=== PATIENT | male | born 1970 | race Caucasian/White ===

== ENCOUNTER → 2017-07-15 | Outpatient (CLI) | payer BC ==
[2017-07-15] MEDS: IOHEXOL 240 MG/ML 50ML VIAL. PO (09:01)
[2017-07-15] MEDS: IOHEXOL 300 MG/ML 100ML VIAL. IV (09:01)
== END | disposition home or self-care (01) ==
LOC: KCIC CT 07:58
DX: N28.1 Cyst of kidney, acquired (principal); K42.9 Umbilical hernia without obstruction or gangrene; R10.84 Generalized abdominal pain
CPT/HCPCS: 74177; Q9966; Q9967

== ENCOUNTER → 2020-03-02 | Outpatient (CLI) | payer BC ==
[~2020-03-02] MED LIST: IOHEXOL 240 MG/ML 50ML VIAL. PO ONE; IOHEXOL 300 MG/ML 100ML VIAL. IV ONE
--- NOTE | 2020-03-02 16:13 | RAD ---
CT scan of the abdomen and pelvis with contrast 03/02/2020 CLINICAL HISTORY: Scrotal pain for 3 months. TECHNIQUE: After the oral and intravenous administration of contrast, contiguous, 5 mm axial sections were obtained through the abdomen and pelvis. 75 cc of Omnipaque 300 were administered intravenously during this examination. One or more of the following individualized dose reduction techniques were utilized for this study: 1. Automated exposure control. 2. Adjustment of the mA and/or kV according to patient size. 3. Use of iterative reconstruction technique. FINDINGS: Comparison study is dated 07/15/2018. Images through the lung bases are within normal limits. The liver, spleen, pancreas, adrenal glands and right kidney are within normal limits. A 2.3 cm rounded low-attenuation lesion is seen involving the midpole of the left kidney. This likely represents a cyst. No further imaging evaluation is recommended. Mild scattered atherosclerotic calcification of the abdominal aorta and its branches is noted. No free fluid or free air is seen within the abdomen. There is no evidence of bowel obstruction. The appendix is well-visualized and is within normal limits. Images through the pelvis demonstrate the urinary bladder distended with urine. No free fluid is seen. No distal ureteral calculus is noted. Minimal S-shaped curvature of the thoracolumbar spine is seen. IMPRESSION: No acute abnormality is seen. Electronically signed by: Oli Silva MD (03/02/2020 4:10 PM) [id number]
--- NOTE | 2020-03-02 16:43 | RAD ---
Scrotal ultrasound 03/02/2020 CLINICAL HISTORY: Scrotal pain. TECHNIQUE: Using a combination of real-time ultrasound imaging and color-flow and pulse Doppler imaging techniques, duplex evaluation of the scrotal sac and its contents was performed. Multiple images were obtained. FINDINGS: Both testicles are within normal limits in size and echogenicity. The right testicle measures 4.9 x 2.9 x 1.8 cm in longitudinal, transverse, and AP dimensions. The left testicle measures 4.9 x 3.2 x 1.9 cm in size. No focal abnormality of either testicle is seen. Normal color-flow and pulse Doppler imaging to both testicles is noted. Oval-shaped anechoic structures are seen adjacent to the periphery of both testicles, superiorly, consistent with tunica albuginea cysts. The right cyst measures 3 mm in size. The left cyst measures 7 mm in size. Both epididymal heads are within normal limits in size and echogenicity. There is a very small left hydrocele. No varicocele is seen. IMPRESSION: 1. Very small left hydrocele. 2. Small tunica albuginea cysts, left greater than right. 3. Otherwise negative study. Electronically signed by: Oli Silva MD (03/02/2020 4:40 PM) [id number]
== END ==
LOC: CT 13:30
PROVIDERS: ATTEND Family Medicine
DX: N50.819 Testicular pain, unspecified (principal); N43.2 Other hydrocele; I70.0 Atherosclerosis of aorta; N32.89 Other specified disorders of bladder; M43.8X5 Other specified deforming dorsopathies, thoracolumbar region
CPT/HCPCS: 74177; 76870; Q9966; Q9967

== ENCOUNTER → 2021-01-01 | Outpatient (CLI) | payer BC ==
--- NOTE | 2021-01-02 10:36 | CARD ---
MR#: [id number] Date of Study: 01/01/2021 Ordering Physician: TREY FREDERICK, Referring Physician: Daniel BLAKE: Missy Cardoso MAIA APPROVED REPORT INDICATION Chest pressure Reason : Patient complained of shortness of breath PROCEDURE The patient underwent an Exercise Stress Test using the Leo Protocol. Blood pressure, heart rate, a nd EKG were monitored. An Echocardiogram was performed by refinish technician in four stages in quad fashion. At peak stress four se lected images were obtained and placed side by side with resting images for comparison. STRESS ECHO FINDINGS The resting Echocardiogram showed normal left ventricular systolic contractility with an estimated Ej ection Fraction of about 60 %. The Resting Echocardiogram showed normal augmentation of myocardial wall segments using a 16 segment model. The Stress Echocardiogram showed normal augmentation of myocardial wall segments using a 16 segment m girish. The Stress Echocardiogram left ventricular systolic contractility has an estimated Ejection Fraction of about 75%. Test Type: Exercise Stress Nurse/Tech: Olive Hamm R.N. Test Indications: chest pain Cardiac History and Allergies: No known cardiac , Family history Medications: see ehr Medical History: see ehr Resting ECG: SB w/BBB Resting Heart Rate: 50 bpm Resting Blood Pressure: 118/66mmHg Pretest Chest Pain: No chest pain Nurse/Tech Notes S1S2, lungs CTA Stress Symptoms fatigue. did c/o a "air bubble " sensation, like he needed to burp -during last 3 minutes of activity . this resolved shortly after laying down POST EXERCISE Reason for Termination: Reached target heart rate Target HR: Yes Max HR: 158 bpm 92% of Maximum Predicted HR: 170 bpm Exercise duration: 10:21 min:sec, 4 Stage Exercise capacity: 12.8METs Max Blood Pressure: 174/98mmHg Blood Pressure response to exercise: Normal blood pressure response during stress. Heart Rate response to exercise: wnl Chest Pain: Yes. see above note Arrhythmia: No. had a few pvc's ST Change: Yes. non diagnostic INTERPRETATION Stress EKG Conclusion: Baseline EKG showed sinus rhythm. Non-diagnostic changes at peak stress. Few PVCs without any significant arrhythmias. <Conclusion> Treadmill exercise stress echocardiogram did not show any evidence of ischemia or infarct. Normal left ventricle systolic function with ejection fraction estimated at 60%. Patient had good activity tolerance. Low risk for cardiac events. Signed by : Trey Frederick, Electronically Approved : 01/02/2021 10:35:29
== END ==
LOC: ECHO 12:10
PROVIDERS: ATTEND Internal Medicine Cardiovascular Disease
DX: R07.9 Chest pain, unspecified (principal)
CPT/HCPCS: 93017; 93350

== ENCOUNTER → 2021-07-04 | Outpatient (CLI) | payer BC ==
--- NOTE | 2021-07-04 17:20 | KCIC ---
Exam: XR FOREARM_LEFT 2 VIEWS, XR ELBOW COMPLETE_LEFT 3+VIEWS History: Left arm pain and bruising. Olecranon bursitis. No trauma. Comparison: None. Findings: Normal osseous mineralization. No fracture or dislocation in the left forearm. No fracture in the lef t elbow. Normal alignment. Small enthesophytes at the internal and external epicondyles as well as at the triceps insertion. There is a focal soft tissue swelling overlying the olecranon. No elbow effus ion. Impression: 1. Findings consistent with olecranon bursitis. 2. No acute osseous abnormality of the left elbow and forearm. Electronically signed by: Timo Rivas MD (07/04/2021 5:17 PM) [id number]
== END ==
LOC: KCIC 15:00
PROVIDERS: ATTEND Family Medicine
DX: M79.89 Other specified soft tissue disorders (principal); M77.8 Other enthesopathies, not elsewhere classified; M70.22 Olecranon bursitis, left elbow
CPT/HCPCS: 73080; 73090